=== PATIENT | female | born 1985 | race Caucasian/White ===

== ENCOUNTER 2019-06-29 19:34 | Emergency (ER) | payer MEDICAID ==
[~2019-06-29] VITALS: Ht 165.1 cm; Wt 104.1 kg
[2019-06-29] MEDS ORDERED: predniSONE 20 mg tablet PO ONE (20:55)
[2019-06-29] MEDS ORDERED: ipratropium/albuterol 3ml nebule NEB ONE (20:55)
[2019-06-29] MEDS ORDERED: PRED20TA PO (21:23)
[2019-06-29] MEDS ORDERED: ALBU8.5H8 IH (21:24)
[2019-06-29 21:34] VITALS: BP 138/85
== END 2019-06-29 21:39 | disposition home or self-care (01) ==
LOC: ER 19:35
DX: J45.901 Unspecified asthma with (acute) exacerbation (principal); J06.9 Acute upper respiratory infection, unspecified; F17.200 Nicotine dependence, unspecified, uncomplicated; Z98.51 Tubal ligation status; Z88.0 Allergy status to penicillin; Z79.899 Other long term (current) drug therapy
CPT/HCPCS: 71045; 94640; 94760; 99283; J7512

== ENCOUNTER 2019-08-16 09:34 | Emergency (ER) | payer MEDICAID ==
[~2019-08-16] VITALS: Ht 165.1 cm; Wt 100.6 kg
[~2019-08-16 09:34] MED LIST: ALBU8.5H8 IH
[2019-08-16 09:46] VITALS: BP 108/70
== END 2019-08-16 12:37 | disposition home or self-care (01) ==
LOC: ER 09:34
DX: M94.0 Chondrocostal junction syndrome [Tietze] (principal); J45.909 Unspecified asthma, uncomplicated; F17.210 Nicotine dependence, cigarettes, uncomplicated; Z98.51 Tubal ligation status; Z88.0 Allergy status to penicillin; Z79.899 Other long term (current) drug therapy
CPT/HCPCS: 99281

== ENCOUNTER 2020-09-13 23:37 | Emergency (ER) | payer MEDICAID ==
[~2020-09-13] VITALS: Ht 167.6 cm; Wt 101.8 kg
[2020-09-14] MEDS ORDERED: ipratropium/albuterol 3ml nebule NEB ONE (00:05)
[2020-09-14] MEDS ORDERED: prednisone 10mg tablet PO SCH (00:05)
[2020-09-14] MEDS ORDERED: predniSONE 20 mg tablet PO ONE (00:07)
[2020-09-14] MEDS ORDERED: PRED20TA PO (01:06)
[2020-09-14 01:15] VITALS: BP 121/72
== END 2020-09-14 01:21 | disposition home or self-care (01) ==
LOC: ER 23:38
DX: J45.998 Other asthma (principal); R06.02 Shortness of breath; R05 Cough; Z98.51 Tubal ligation status; Z88.0 Allergy status to penicillin; Z79.899 Other long term (current) drug therapy
CPT/HCPCS: 94640; 94760; 99283; J7512

== ENCOUNTER 2020-11-26 19:20 | Emergency (ER) | payer MEDICAID ==
[~2020-11-26] VITALS: Ht 167.6 cm; Wt 152.3 kg
[2020-11-26 19:26] VITALS: BP 121/84
[2020-11-26] MEDS ORDERED: TETanus/Pertussis (Acell)/Diphther VAC/PF (Tdap-Adult) 0.5ml syringe IMVAC ONE (20:40)
[2020-11-26] MEDS ORDERED: LIDOcaine 1% 30ml preserv. free vial IJ ONE (20:40)
[2020-11-26] MEDS ORDERED: bacitracin 15gm ointment TP ONE (20:40)
== END 2020-11-26 21:33 | disposition home or self-care (01) ==
LOC: ER 19:20
DX: S61.210A Laceration without foreign body of right index finger without damage to nail, initial encounter (principal); J45.909 Unspecified asthma, uncomplicated; Z98.51 Tubal ligation status; Z88.0 Allergy status to penicillin; Z79.899 Other long term (current) drug therapy; W22.8XXA Striking against or struck by other objects, initial encounter; Y93.G3 Activity, cooking and baking; Y92.89 Other specified places as the place of occurrence of the external cause; Y99.8 Other external cause status
CPT/HCPCS: 12001; 90471; 90715; 99283

== ENCOUNTER 2021-01-29 09:01 | Outpatient (CLI) | payer MEDICAID ==
[~2021-01-29] VITALS: Ht 166.4 cm; Wt 154.2 kg
[2021-01-29] MEDS ORDERED: albuterol 2.5 MG/3 ML nebule NEB ONE (10:00)
== END 2021-01-29 23:59 | disposition home or self-care (01) ==
LOC: RT 09:01
PROVIDERS: ATTEND Family Medicine
DX: J44.9 Chronic obstructive pulmonary disease, unspecified (principal)
CPT/HCPCS: 94060; 94760

== ENCOUNTER 2021-12-30 19:02 | Emergency (ER) | payer MEDICAID ==
[~2021-12-30] VITALS: Ht 167.6 cm; Wt 114.5 kg
[~2021-12-30 19:02] MED LIST changes: +ALBU8.5H17 IH; -ALBU8.5H8 IH
[2021-12-30] MEDS ORDERED: aspirin 81mg tab.chew PO ONE (19:35)
[2021-12-30 20:01] LABS: BASOPHILS # (AUTO) 0.1 X10'3 (0-0.2); EOSINOPHILS # (AUTO) 0.3 X10'3 (0-0.9); EOSINOPHILS % (AUTO) 2.8 % (0-6); HEMATOCRIT 36.4 % (35.0-45.0); HEMOGLOBIN 12.1 g/dl (12.0-16.0); LYMPHOCYTES # (AUTO) 2.5 X10'3 (1.1-4.8); LYMPHOCYTES % (AUTO) 28.9 % (21-51); MEAN CORPUSCULAR HEMOGLOBIN 29.6 PG (27.0-31.0); MEAN CORPUSCULAR HGB CONC 33.3 g/dL (33.0-36.5); MEAN CORPUSCULAR VOLUME 88.9 FL (78-98); MEAN PLATELET VOLUME 9.7 FL (7.4-10.4); MONOCYTES # (AUTO) 0.5 X10'3 (0-0.9); MONOCYTES % (AUTO) 6.1 % (2-12); NEUTROPHILS # (AUTO) 5.4 X10'3 (1.8-7.7); NEUTROPHILS % (AUTO) 61.2 % (42-75); PLATELET COUNT 325 X10'3 (140-440); RED BLOOD COUNT 4.09 X10'6 (4.20-5.60); RED CELL DISTRIBUTION WIDTH 14.7 % (11.5-14.5); WHITE BLOOD COUNT 8.8 X10'3 (4.5-11.0)
[2021-12-30 20:25] LABS: ALANINE AMINOTRANSFERASE 28 U/L (12-78); ALBUMIN 3.6 G/DL (3.4-5.0); ALBUMIN/GLOBULIN RATIO 0.9 (1.1-1.5); ANION GAP 9 (8-16); ASPARTATE AMINO TRANSFERASE 17 U/L (10-37); BILIRUBIN,TOTAL 0.2 MG/DL (0.1-1.0); BLOOD UREA NITROGEN 13 MG/DL (7-18); BUN/CREATININE RATIO 14.6 (6.6-38.0); CALCIUM 9.3 MG/DL (8.5-10.1); CHLORIDE 99 MMOL/L (99-107); CREATININE 0.89 MG/DL (0.40-0.90); GLUCOSE 112 MG/DL (70-104); MAGNESIUM 1.6 MG/DL (1.5-2.4); POTASSIUM 3.7 MMOL/L (3.5-5.1); SODIUM 136 MMOL/L (135-145); TOTAL CARBON DIOXIDE 28.3 MMOL/L (24-32); TOTAL PROTEIN 7.5 G/DL (6.4-8.2); eGFR 72 ML/MIN
[2021-12-30 21:46] VITALS: BP 105/63
== END 2021-12-30 22:13 | disposition left against medical advice (07) ==
LOC: ER 19:02
DX: R07.89 Other chest pain (principal); Z53.21 Procedure and treatment not carried out due to patient leaving prior to being seen by health care provider
CPT/HCPCS: 36415; 71045; 80053; 83735; 83880; 84484; 85025; 93005; 99285

== ENCOUNTER 2022-01-25 06:10 | Emergency (ER) | payer MEDICAID ==
[~2022-01-25] VITALS: Ht 167.6 cm; Wt 115.9 kg
[2022-01-25] MEDS ORDERED: ondansetron/PF 4mg/2ml inj IV ONE (06:35)
[2022-01-25] MEDS ORDERED: normal saline 1000ml 1,000 ML IV ONE (06:35)
[2022-01-25] MEDS ORDERED: acetaminophen 325mg tablet PO ONE (06:35)
[2022-01-25] MEDS ORDERED: ketorolac trometh. 30mg/ml inj. IV ONE (06:35)
[2022-01-25 07:31] LABS: BASOPHILS % (AUTO) 0.5 % (0-1); EOSINOPHILS # (AUTO) 0.2 X10'3 (0-0.9); EOSINOPHILS % (AUTO) 2.9 % (0-6); HEMATOCRIT 34.5 % (35.0-45.0); HEMOGLOBIN 11.8 g/dl (12.0-16.0); LYMPHOCYTES # (AUTO) 0.7 X10'3 (1.1-4.8); LYMPHOCYTES % (AUTO) 11.2 % (21-51); MEAN CORPUSCULAR HEMOGLOBIN 29.9 PG (27.0-31.0); MEAN CORPUSCULAR VOLUME 87.8 FL (78-98); MEAN PLATELET VOLUME 9.7 FL (7.4-10.4); MONOCYTES # (AUTO) 0.3 X10'3 (0-0.9); MONOCYTES % (AUTO) 5.2 % (2-12); NEUTROPHILS # (AUTO) 4.9 X10'3 (1.8-7.7); NEUTROPHILS % (AUTO) 80.2 % (42-75); PLATELET COUNT 267 X10'3 (140-440); RED BLOOD COUNT 3.93 X10'6 (4.20-5.60); RED CELL DISTRIBUTION WIDTH 14.2 % (11.5-14.5); WHITE BLOOD COUNT 6.1 X10'3 (4.5-11.0)
[2022-01-25] MEDS ORDERED: LORA10TA7 PO (07:34)
[2022-01-25] MEDS ORDERED: OMEP40CA21 PO (07:34)
[2022-01-25] MEDS ORDERED: AMIT25TA9 PO (07:34)
[2022-01-25] MEDS ORDERED: ESCI20TA25 PO (07:34)
[2022-01-25] MEDS ORDERED: MONT10TA21 PO (07:34)
[2022-01-25 07:37] LABS: URINE HCG NEGATIVE (NEG)
[2022-01-25 07:39] LABS: CLARITY,URINE CLOUDY (Clear); COLOR,URINE YELLOW (Yellow); GLUCOSE, URINE NEGATIVE (Neg); KETONES,URINE NEGATIVE (Neg); LEUKOCYTE ESTERASE ,URINE TRACE (Neg); NITRITES, URINE NEGATIVE (Neg); OCCULT BLOOD,URINE NEGATIVE (Neg); PH,URINE 7.5 (4.8-8.0); PROTEIN,URINE TRACE mg/dl (Neg)
[2022-01-25 07:48] LABS: MUCUS STRANDS FEW /LPF (Neg); SQUAMOUS EPITHELIAL CELL,UR MANY /LPF (FEW); UA COLLECTION TYPE NON-SPECIFIED
[2022-01-25 07:49] LABS: BACTERIA,URINE 1+ /HPF (Neg); RBC,URINE 0-2 /HPF (0-2); WBC,URINE 0-4 /HPF (0-4)
[2022-01-25 07:50] LABS: ALANINE AMINOTRANSFERASE 25 U/L (12-78); ALBUMIN 3.3 G/DL (3.4-5.0); ALBUMIN/GLOBULIN RATIO 0.9 (1.1-1.5); ALKALINE PHOSPHATASE 60 IU/L (46-116); ANION GAP 12 (8-16); ASPARTATE AMINO TRANSFERASE 16 U/L (10-37); BILIRUBIN,TOTAL 0.3 MG/DL (0.1-1.0); BLOOD UREA NITROGEN 8 MG/DL (7-18); CALCIUM 8.2 MG/DL (8.5-10.1); CHLORIDE 102 MMOL/L (99-107); CREATININE 0.73 MG/DL (0.40-0.90); GLUCOSE 99 MG/DL (70-104); LIPASE < 50 U/L (73-393); POTASSIUM 3.8 MMOL/L (3.5-5.1); SODIUM 138 MMOL/L (135-145); TOTAL PROTEIN 7.1 G/DL (6.4-8.2); eGFR 90 ML/MIN
[2022-01-25] MEDS ORDERED: ONDA8TAB13 PO (10:15)
[2022-01-25 10:54] VITALS: BP 110/84
== END 2022-01-25 10:55 | disposition home or self-care (01) ==
LOC: ER 06:10
DX: B34.9 Viral infection, unspecified (principal); Z20.822 Contact with and (suspected) exposure to COVID-19; M54.9 Dorsalgia, unspecified; R11.2 Nausea with vomiting, unspecified; J45.909 Unspecified asthma, uncomplicated; Z98.51 Tubal ligation status; Z88.0 Allergy status to penicillin; Z79.899 Other long term (current) drug therapy
CPT/HCPCS: 36415; 80053; 81001; 81025; 83690; 84145; 85025; 87635; 96361; 96374; 96375; 99285; C9803; J1885; J2405; J7030

== ENCOUNTER 2022-04-05 16:51 | Emergency (ER) | payer MEDICAID ==
[~2022-04-05] VITALS: Ht 167.6 cm; Wt 114.5 kg
[~2022-04-05 16:51] MED LIST changes: +AMIT25TA9 PO; +ESCI20TA25 PO; +LORA10TA7 PO; +MONT10TA21 PO; +OMEP40CA21 PO; +ONDA8TAB13 PO
[2022-04-05] MEDS ORDERED: AZIT-31 PO (20:20)
[2022-04-05] MEDS ORDERED: azithromycin 250mg tablet PO ONE (21:00)
[2022-04-05 21:16] VITALS: BP 120/76
== END 2022-04-05 21:23 | disposition home or self-care (01) ==
LOC: ER 16:55
DX: J18.9 Pneumonia, unspecified organism (principal); J45.909 Unspecified asthma, uncomplicated; Z20.822 Contact with and (suspected) exposure to COVID-19; F41.9 Anxiety disorder, unspecified; Z98.51 Tubal ligation status; Z88.0 Allergy status to penicillin; Z79.899 Other long term (current) drug therapy
CPT/HCPCS: 71045; 87502; 87503; 87635; 99284; C9803

== ENCOUNTER 2022-04-17 17:44 | Emergency (ER) | payer MEDICAID ==
[~2022-04-17] VITALS: Ht 167.6 cm; Wt 115.0 kg
[2022-04-17] MEDS ORDERED: ketorolac trometh. 30mg/ml inj. IV ONE (18:55)
[2022-04-17 19:12] LABS: URINE HCG NEGATIVE (NEG)
[2022-04-17 19:14] LABS: CLARITY,URINE SLIGHTLY CLOUDY (Clear); COLOR,URINE YELLOW (Yellow); GLUCOSE, URINE NEGATIVE (Neg); KETONES,URINE NEGATIVE (Neg); LEUKOCYTE ESTERASE ,URINE TRACE (Neg); NITRITES, URINE NEGATIVE (Neg); OCCULT BLOOD,URINE LARGE (Neg); PROTEIN,URINE TRACE mg/dl (Neg); UROBILINOGEN,URINE 0.2 E.U/dL (0.2-1.0)
[2022-04-17 19:20] LABS: UA COLLECTION TYPE CLN CATCH MIDSTREAM
[2022-04-17 19:25] LABS: BACTERIA,URINE FEW /HPF (Neg); MUCUS STRANDS MANY /LPF (Neg); SQUAMOUS EPITHELIAL CELL,UR MANY /LPF (FEW); WBC,URINE 0-4 /HPF (0-4)
== END 2022-04-17 20:07 | disposition home or self-care (01) ==
LOC: ER 19:22
DX: R10.2 Pelvic and perineal pain (principal); R10.84 Generalized abdominal pain; J45.909 Unspecified asthma, uncomplicated; F41.9 Anxiety disorder, unspecified; Z88.0 Allergy status to penicillin; Z79.899 Other long term (current) drug therapy
CPT/HCPCS: 81001; 81025; 96374; 99283; J1885

== ENCOUNTER 2022-07-27 11:55 | Emergency (ER) | payer MEDICAID ==
[~2022-07-27] VITALS: Ht 167.6 cm; Wt 114.9 kg
[~2022-07-27 11:55] MED LIST changes: -ESCI20TA25 PO; +ESCI20TA36 PO
[2022-07-27 12:24] VITALS: BP 120/70
[2022-07-27] MEDS ORDERED: ketorolac trometh inj. 60 MG/2 ML VIAL IM ONE (12:50)
[2022-07-27] MEDS ORDERED: ORPH100T2 PO (13:18)
== END 2022-07-27 13:32 | disposition home or self-care (01) ==
LOC: ER 11:56
DX: S39.012A Strain of muscle, fascia and tendon of lower back, initial encounter (principal); F41.9 Anxiety disorder, unspecified; G89.29 Other chronic pain; M54.9 Dorsalgia, unspecified; J45.909 Unspecified asthma, uncomplicated; Z87.81 Personal history of (healed) traumatic fracture; Z88.0 Allergy status to penicillin; Z79.899 Other long term (current) drug therapy; X58.XXXA Exposure to other specified factors, initial encounter; Y93.89 Activity, other specified; Y92.89 Other specified places as the place of occurrence of the external cause; Y99.8 Other external cause status
CPT/HCPCS: 96372; 99283; J1885

== ENCOUNTER 2022-09-03 15:01 | Emergency (ER) | payer MEDICAID ==
[~2022-09-03] VITALS: Ht 167.6 cm; Wt 111.4 kg
[~2022-09-03 15:01] MED LIST changes: +ORPH100T2 PO
[2022-09-03 15:04] VITALS: BP 108/75
[2022-09-03] MEDS ORDERED: IBUP-1984 PO (17:07)
== END 2022-09-03 17:31 | disposition home or self-care (01) ==
LOC: ER 15:02
DX: M25.571 Pain in right ankle and joints of right foot (principal); J45.909 Unspecified asthma, uncomplicated; G89.29 Other chronic pain; F41.9 Anxiety disorder, unspecified; Z98.51 Tubal ligation status; Z88.0 Allergy status to penicillin; Z79.899 Other long term (current) drug therapy
CPT/HCPCS: 73610; 99283

== ENCOUNTER 2022-09-07 23:14 | Emergency (ER) | payer MEDICAID ==
[~2022-09-07] VITALS: Ht 167.6 cm; Wt 113.0 kg
[~2022-09-07 23:14] MED LIST changes: +IBUP-1984 PO
[2022-09-07 23:18] VITALS: BP 121/75
[2022-09-08 00:14] LABS: CLARITY,URINE CLOUDY (Clear); GLUCOSE, URINE NEGATIVE (Neg); KETONES,URINE 15 mg/dl (Neg); LEUKOCYTE ESTERASE ,URINE SMALL (Neg); NITRITES, URINE POSITIVE (Neg); OCCULT BLOOD,URINE LARGE (Neg); PH,URINE 5.5 (4.8-8.0); PROTEIN,URINE 100 mg/dl (Neg); URINE HCG NEGATIVE (NEG)
[2022-09-08 00:30] LABS: COLOR,URINE RED (Yellow); UA COLLECTION TYPE CLN CATCH MIDSTREAM
[2022-09-08 00:32] LABS: BACTERIA,URINE FEW /HPF (Neg); RBC,URINE TNTC /HPF (0-2); SQUAMOUS EPITHELIAL CELL,UR FEW /LPF (FEW)
[2022-09-08 00:33] LABS: MUCUS STRANDS FEW /LPF (Neg)
[2022-09-08 02:25] LABS: BASOPHILS # (AUTO) 0.1 X10'3 (0-0.2); BASOPHILS % (AUTO) 1.3 % (0-1); EOSINOPHILS # (AUTO) 0.2 X10'3 (0-0.9); EOSINOPHILS % (AUTO) 3.1 % (0-6); HEMATOCRIT 32.1 % (35.0-45.0); LYMPHOCYTES # (AUTO) 2.3 X10'3 (1.1-4.8); LYMPHOCYTES % (AUTO) 32.8 % (21-51); MEAN CORPUSCULAR HEMOGLOBIN 29.5 PG (27.0-31.0); MEAN CORPUSCULAR HGB CONC 34.3 g/dL (33.0-36.5); MEAN PLATELET VOLUME 9.8 FL (7.4-10.4); MONOCYTES # (AUTO) 0.4 X10'3 (0-0.9); NEUTROPHILS % (AUTO) 56.8 % (42-75); PLATELET COUNT 290 X10'3 (140-440); RED BLOOD COUNT 3.73 X10'6 (4.20-5.60); RED CELL DISTRIBUTION WIDTH 14.1 % (11.5-14.5)
[2022-09-08 02:39] LABS: ALANINE AMINOTRANSFERASE 23 U/L (12-78); ALBUMIN 3.5 G/DL (3.4-5.0); ALBUMIN/GLOBULIN RATIO 0.9 (1.1-1.5); ALKALINE PHOSPHATASE 66 IU/L (46-116); ANION GAP 7 (8-16); ASPARTATE AMINO TRANSFERASE 18 U/L (10-37); BILIRUBIN,TOTAL 0.2 MG/DL (0.1-1.0); BLOOD UREA NITROGEN 9 MG/DL (7-18); BUN/CREATININE RATIO 8.9 (6.6-38.0); CHLORIDE 103 MMOL/L (99-107); CREATININE 1.01 MG/DL (0.40-0.90); GLUCOSE 99 MG/DL (70-104); POTASSIUM 3.5 MMOL/L (3.5-5.1); SODIUM 137 MMOL/L (135-145); TOTAL CARBON DIOXIDE 27.5 MMOL/L (24-32); TOTAL PROTEIN 7.3 G/DL (6.4-8.2); eGFR 62 ML/MIN
[2022-09-08] MEDS ORDERED: acetaminophen 325mg tablet PO ONE (07:55)
[2022-09-08] MEDS ORDERED: ondansetron 4mg rapidly disintigrating tab PO ONE (07:55)
[2022-09-08] MEDS ORDERED: CIPR-202 PO (07:57)
[2022-09-08] MEDS ORDERED: ketorolac trometh inj. 60 MG/2 ML VIAL IM ONE (08:06)
[2022-09-08] MEDS ORDERED: ciprofloxacin 250mg tablet PO ONE (08:06)
== END 2022-09-08 08:49 | disposition home or self-care (01) ==
LOC: ER 23:15
DX: N39.0 Urinary tract infection, site not specified (principal); R31.9 Hematuria, unspecified; G89.29 Other chronic pain; M54.9 Dorsalgia, unspecified; F41.9 Anxiety disorder, unspecified; J45.909 Unspecified asthma, uncomplicated; Z88.0 Allergy status to penicillin; Z79.899 Other long term (current) drug therapy; Z79.1 Long term (current) use of non-steroidal anti-inflammatories (NSAID)
CPT/HCPCS: 36415; 80053; 81001; 81025; 85025; 87088; 96372; 99284; J1885

== ENCOUNTER 2022-10-18 09:29 | Emergency (ER) | payer MEDICAID ==
[~2022-10-18] VITALS: Ht 167.6 cm; Wt 116.0 kg
[~2022-10-18 09:29] MED LIST changes: -IBUP-1984 PO
[2022-10-18 10:38] LABS: URINE HCG NEGATIVE (NEG)
[2022-10-18 10:39] LABS: CLARITY,URINE CLOUDY (Clear); COLOR,URINE YELLOW (Yellow); GLUCOSE, URINE NEGATIVE (Neg); KETONES,URINE NEGATIVE (Neg); LEUKOCYTE ESTERASE ,URINE MODERATE (Neg); NITRITES, URINE NEGATIVE (Neg); OCCULT BLOOD,URINE MODERATE (Neg); PROTEIN,URINE NEGATIVE (Neg); UROBILINOGEN,URINE 0.2 E.U/dL (0.2-1.0)
[2022-10-18 10:46] LABS: UA COLLECTION TYPE CLN CATCH MIDSTREAM
[2022-10-18 10:58] LABS: BACTERIA,URINE 4+ /HPF (Neg); MUCUS STRANDS FEW /LPF (Neg); RBC,URINE 0-2 /HPF (0-2); SQUAMOUS EPITHELIAL CELL,UR MANY /LPF (FEW); WBC,URINE 50-100 /HPF (0-4)
[2022-10-18] MEDS ORDERED: HYDR-3965 PO (11:44)
[2022-10-18] MEDS ORDERED: HYDROcodone/acetaminophen 5mg/325mg tablet PO ONE (11:45)
[2022-10-18 11:52] VITALS: BP 141/88
== END 2022-10-18 12:12 | disposition home or self-care (01) ==
LOC: ER 09:29
DX: M54.9 Dorsalgia, unspecified (principal); G89.29 Other chronic pain; F41.9 Anxiety disorder, unspecified; J45.909 Unspecified asthma, uncomplicated; Z88.0 Allergy status to penicillin; Z79.899 Other long term (current) drug therapy
CPT/HCPCS: 81001; 81025; 99283

== ENCOUNTER 2022-12-03 19:29 | Emergency (ER) | payer MEDICAID ==
[~2022-12-03] VITALS: Ht 167.6 cm; Wt 116.3 kg
[2022-12-03 19:44] VITALS: BP 129/77
[2022-12-03] MEDS ORDERED: SULF1TAB49 PO (20:39)
[2022-12-03] MEDS ORDERED: LIDOcaine 1% 30ml preserv. free vial IJ ONE (20:45)
[2022-12-03] MEDS ORDERED: bacitracin 15gm ointment TP ONE (21:30)
[2022-12-03] MEDS ORDERED: sulfamethoxazole/trimethoprim DS (800/160mg) tablet PO ONE (21:30)
== END 2022-12-03 21:40 | disposition home or self-care (01) ==
LOC: ER 19:29
DX: L60.0 Ingrowing nail (principal); J45.909 Unspecified asthma, uncomplicated; G89.29 Other chronic pain; F41.9 Anxiety disorder, unspecified; Z98.51 Tubal ligation status; Z88.0 Allergy status to penicillin; Z79.899 Other long term (current) drug therapy
CPT/HCPCS: 10060; 99283

== ENCOUNTER 2022-12-28 07:06 | Emergency (ER) | payer MEDICAID ==
[~2022-12-28] VITALS: Ht 167.6 cm; Wt 115.0 kg
[2022-12-28 07:09] VITALS: BP 104/58
[2022-12-28 08:06] LABS: BASOPHILS % (AUTO) 0.6 % (0-1); EOSINOPHILS # (AUTO) 0.2 X10'3 (0-0.9); EOSINOPHILS % (AUTO) 2.9 % (0-6); HEMATOCRIT 33.4 % (35.0-45.0); HEMOGLOBIN 11.2 g/dl (12.0-16.0); MEAN CORPUSCULAR HEMOGLOBIN 28.7 PG (27.0-31.0); MEAN CORPUSCULAR HGB CONC 33.7 g/dL (33.0-36.5); MEAN CORPUSCULAR VOLUME 85.2 FL (78-98); MEAN PLATELET VOLUME 9.1 FL (7.4-10.4); MONOCYTES # (AUTO) 0.5 X10'3 (0-0.9); MONOCYTES % (AUTO) 5.5 % (2-12); NEUTROPHILS # (AUTO) 5.5 X10'3 (1.8-7.7); PLATELET COUNT 286 X10'3 (140-440); RED BLOOD COUNT 3.92 X10'6 (4.20-5.60); RED CELL DISTRIBUTION WIDTH 14.6 % (11.5-14.5); WHITE BLOOD COUNT 8.2 X10'3 (4.5-11.0)
[2022-12-28 08:19] LABS: ALANINE AMINOTRANSFERASE 26 U/L (12-78); ALBUMIN 3.5 G/DL (3.4-5.0); ALBUMIN/GLOBULIN RATIO 0.9 (1.1-1.5); ALKALINE PHOSPHATASE 68 IU/L (46-116); ANION GAP 6 (8-16); ASPARTATE AMINO TRANSFERASE 21 U/L (10-37); BILIRUBIN,TOTAL 0.2 MG/DL (0.1-1.0); BLOOD UREA NITROGEN 11 MG/DL (7-18); BUN/CREATININE RATIO 12.8 (6.6-38.0); CALCIUM 8.9 MG/DL (8.5-10.1); CHLORIDE 102 MMOL/L (99-107); CREATININE 0.86 MG/DL (0.40-0.90); GLUCOSE 103 MG/DL (70-104); LIPASE < 50 U/L (73-393); SODIUM 138 MMOL/L (135-145); TOTAL CARBON DIOXIDE 30.2 MMOL/L (24-32); TOTAL PROTEIN 7.4 G/DL (6.4-8.2); eGFR 74 ML/MIN
[2022-12-28 08:41] LABS: CLARITY,URINE CLOUDY (Clear); COLOR,URINE YELLOW (Yellow); GLUCOSE, URINE NEGATIVE (Neg); KETONES,URINE NEGATIVE (Neg); LEUKOCYTE ESTERASE ,URINE MODERATE (Neg); NITRITES, URINE NEGATIVE (Neg); OCCULT BLOOD,URINE MODERATE (Neg); PH,URINE 6.5 (4.8-8.0); PROTEIN,URINE 30 mg/dl (Neg); UROBILINOGEN,URINE 0.2 E.U/dL (0.2-1.0)
[2022-12-28 08:43] LABS: URINE HCG NEGATIVE (NEG)
[2022-12-28 08:50] LABS: UA COLLECTION TYPE CLN CATCH MIDSTREAM
[2022-12-28 08:51] LABS: WBC,URINE 50-100 /HPF (0-4)
[2022-12-28 08:52] LABS: BACTERIA,URINE 4+ /HPF (Neg); SQUAMOUS EPITHELIAL CELL,UR MODERATE /LPF (FEW); WBC CLUMPS,URINE MODERATE /HPF (NEGATIVE)
[2022-12-28] MEDS ORDERED: ondansetron/PF 4mg/2ml inj IV ONE (09:05)
[2022-12-28] MEDS ORDERED: normal saline 1000ML IV soln IVB ONE (09:05)
[2022-12-28] MEDS ORDERED: ketorolac trometh. 30mg/ml inj. IV ONE (09:05)
[2022-12-28] MEDS ORDERED: HYDROcodone/acetaminophen 5mg/325mg tablet PO ONE (09:05)
--- NOTE | 2022-12-28 09:27 | NUR ---
high raw sugar boiler aware of IV meds for patient.
[2022-12-28] MEDS ORDERED: CefTRIAXone 2gm/D5W 50ml BAG 50 ML IV ONE (10:15)
--- NOTE | 2022-12-28 10:34 | NUR ---
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
--- NOTE | 2022-12-28 10:38 | NUR ---
master control technician at bedside.
[2022-12-28] MEDS ORDERED: CEPH250T PO (10:57)
[2022-12-28] MEDS ORDERED: FLO0.4C PO (10:57)
[2022-12-28] MEDS ORDERED: NAPR-56 PO (10:57)
[2022-12-28] MEDS ORDERED: HYDR-3965 PO (10:57)
--- NOTE | 2022-12-28 11:15 | NUR ---
IV removed, cannual intact.
== END 2022-12-28 11:18 | disposition home or self-care (01) ==
LOC: ER 07:06
DX: N12 Tubulo-interstitial nephritis, not specified as acute or chronic (principal); M54.50 Low back pain, unspecified; F41.9 Anxiety disorder, unspecified; Z88.0 Allergy status to penicillin; Z79.899 Other long term (current) drug therapy; Z98.51 Tubal ligation status
CPT/HCPCS: 36415; 76770; 80053; 81001; 81025; 83690; 85025; 87088; 87186; 96365; 96375; 99285; J0696; J1885; J2405; J7030; 87077

== ENCOUNTER 2023-01-06 17:49 | Emergency (ER) | payer MEDICAID ==
[~2023-01-06] VITALS: Ht 167.6 cm; Wt 118.0 kg
[~2023-01-06 17:49] MED LIST changes: +CEPH250T PO; +FLO0.4C PO; +HYDR-3965 PO; +NAPR-56 PO
[2023-01-06 19:09] LABS: CLARITY,URINE SLIGHTLY CLOUDY (Clear); COLOR,URINE YELLOW (Yellow); GLUCOSE, URINE NEGATIVE (Neg); KETONES,URINE NEGATIVE (Neg); LEUKOCYTE ESTERASE ,URINE TRACE (Neg); NITRITES, URINE NEGATIVE (Neg); OCCULT BLOOD,URINE NEGATIVE (Neg); PROTEIN,URINE NEGATIVE (Neg); URINE HCG NEGATIVE (NEG); UROBILINOGEN,URINE 0.2 E.U/dL (0.2-1.0)
[2023-01-06 19:14] LABS: UA COLLECTION TYPE CLN CATCH MIDSTREAM
[2023-01-06 19:19] LABS: BACTERIA,URINE FEW /HPF (Neg); MUCUS STRANDS FEW /LPF (Neg); SQUAMOUS EPITHELIAL CELL,UR MODERATE /LPF (FEW)
[2023-01-06 19:48] VITALS: BP 122/78
[2023-01-06] MEDS ORDERED: normal saline 1000ML IV soln IVB ONE (20:25)
[2023-01-06 20:29] LABS: BASOPHILS # (AUTO) 0.1 X10'3 (0-0.2); BASOPHILS % (AUTO) 0.7 % (0-1); EOSINOPHILS # (AUTO) 0.2 X10'3 (0-0.9); EOSINOPHILS % (AUTO) 2.2 % (0-6); HEMATOCRIT 32.2 % (35.0-45.0); HEMOGLOBIN 10.4 g/dl (12.0-16.0); LYMPHOCYTES % (AUTO) 25.9 % (21-51); MEAN CORPUSCULAR HEMOGLOBIN 27.6 PG (27.0-31.0); MEAN CORPUSCULAR HGB CONC 32.4 g/dL (33.0-36.5); MEAN CORPUSCULAR VOLUME 85.2 FL (78-98); MEAN PLATELET VOLUME 9.3 FL (7.4-10.4); MONOCYTES # (AUTO) 0.5 X10'3 (0-0.9); MONOCYTES % (AUTO) 6.5 % (2-12); NEUTROPHILS # (AUTO) 4.9 X10'3 (1.8-7.7); NEUTROPHILS % (AUTO) 64.7 % (42-75); PLATELET COUNT 328 X10'3 (140-440); RED BLOOD COUNT 3.78 X10'6 (4.20-5.60); RED CELL DISTRIBUTION WIDTH 14.5 % (11.5-14.5); WHITE BLOOD COUNT 7.6 X10'3 (4.5-11.0)
[2023-01-06 20:43] LABS: ALANINE AMINOTRANSFERASE 23 U/L (12-78); ALBUMIN 3.6 G/DL (3.4-5.0); ALBUMIN/GLOBULIN RATIO 0.9 (1.1-1.5); ALKALINE PHOSPHATASE 61 IU/L (46-116); ANION GAP 7 (8-16); ASPARTATE AMINO TRANSFERASE 14 U/L (10-37); BILIRUBIN,TOTAL 0.3 MG/DL (0.1-1.0); BLOOD UREA NITROGEN 7 MG/DL (7-18); CALCIUM 9.2 MG/DL (8.5-10.1); CHLORIDE 103 MMOL/L (99-107); CREATININE 0.78 MG/DL (0.40-0.90); GLUCOSE 95 MG/DL (70-104); POTASSIUM 3.7 MMOL/L (3.5-5.1); SODIUM 138 MMOL/L (135-145); TOTAL CARBON DIOXIDE 27.9 MMOL/L (24-32); TOTAL PROTEIN 7.4 G/DL (6.4-8.2); eGFR 83 ML/MIN
[2023-01-06] MEDS ORDERED: HYDROcodone/acetaminophen 5mg/325mg tablet PO ONE (21:30)
[2023-01-06] MEDS ORDERED: CefTRIAXone 2gm/D5W 50ml BAG 50 ML IV ONE (21:30)
[2023-01-06] MEDS ORDERED: HYDR-3965 PO (21:30)
[2023-01-06] MEDS ORDERED: CEPH250T PO (21:30)
[2023-01-06] MEDS ORDERED: ketorolac trometh. 30mg/ml inj. IV ONE (21:30)
== END 2023-01-06 22:33 | disposition home or self-care (01) ==
LOC: ER 17:50
DX: N12 Tubulo-interstitial nephritis, not specified as acute or chronic (principal); N20.0 Calculus of kidney; J45.909 Unspecified asthma, uncomplicated; G89.29 Other chronic pain; M54.50 Low back pain, unspecified; Z88.0 Allergy status to penicillin; Z98.51 Tubal ligation status
CPT/HCPCS: 36415; 74176; 76856; 80053; 81001; 81025; 85025; 85610; 86885; 86900; 86901; 87088; 93976; 96361; 96365; 96375; 99285; J0696; J1885; J7030

== ENCOUNTER 2023-03-12 05:46 | Emergency (ER) | payer MEDICAID ==
[~2023-03-12] VITALS: Ht 167.6 cm; Wt 110.9 kg
[~2023-03-12 05:46] MED LIST changes: -CEPH250T PO; -FLO0.4C PO; -HYDR-3965 PO; +MONT-47 PO; -MONT10TA21 PO; -NAPR-56 PO; -ORPH100T2 PO; +ORPH100T4 PO
[2023-03-12 05:53] VITALS: BP 118/60
== END 2023-03-12 08:53 | disposition home or self-care (01) ==
LOC: ER 05:46
DX: M79.674 Pain in right toe(s) (principal); G89.29 Other chronic pain; J45.909 Unspecified asthma, uncomplicated; F41.9 Anxiety disorder, unspecified; Z98.51 Tubal ligation status; Z88.0 Allergy status to penicillin; Z79.899 Other long term (current) drug therapy
CPT/HCPCS: 99281

== ENCOUNTER 2024-04-10 11:37 | Emergency (ER) | payer MEDICAID ==
[~2024-04-10] VITALS: Ht 165.1 cm; Wt 94.1 kg
[2024-04-10 11:51] VITALS: BP 110/67; TEMP 98
[2024-04-10] MEDS: ipratropium/albuterol 3ml nebule NEB ONE (14:44)
[2024-04-10 14:45] VITALS: PULSE 76; RESP 18; O2SAT 99
[2024-04-10 14:51] VITALS: PULSE 78; RESP 18; O2SAT 100
[2024-04-10] MEDS ORDERED: ALBU8HFA PO (14:54)
[2024-04-10] MEDS ORDERED: PRED20TA PO (14:54)
[2024-04-10] MEDS: predniSONE 20 mg tablet PO ONE (14:58)
[2024-04-10 15:39] VITALS: PULSE 90; RESP 16; O2SAT 99
== END 2024-04-10 15:41 | disposition home or self-care (01) ==
LOC: ER 11:37
DX: J45.901 Unspecified asthma with (acute) exacerbation (principal); Z88.0 Allergy status to penicillin; Z79.899 Other long term (current) drug therapy; Z98.51 Tubal ligation status
CPT/HCPCS: 71045; 94640; 99283; J7512; 94760

== ENCOUNTER 2024-07-05 22:07 | Emergency (ER) | payer MEDICAID ==
[~2024-07-05] VITALS: Ht 165.1 cm; Wt 95.4 kg
[~2024-07-05 22:07] MED LIST changes: +ONDA-245 PO; -ONDA8TAB13 PO
[2024-07-05 22:15] VITALS: BP 104/71; PULSE 89; RESP 16; TEMP 97.8; O2SAT 100
[2024-07-05] MEDS ORDERED: AMOX-580 PO (22:18)
[2024-07-05] MEDS ORDERED: VALA100031 PO (22:18)
== END 2024-07-05 23:03 | disposition home or self-care (01) ==
LOC: ER 22:07
DX: S51.832A Puncture wound without foreign body of left forearm, initial encounter (principal); J45.909 Unspecified asthma, uncomplicated; G89.29 Other chronic pain; M54.9 Dorsalgia, unspecified; Z88.0 Allergy status to penicillin; Z79.899 Other long term (current) drug therapy; Z98.51 Tubal ligation status; W55.01XA Bitten by cat, initial encounter; Y93.89 Activity, other specified; Y92.89 Other specified places as the place of occurrence of the external cause; Y99.8 Other external cause status
CPT/HCPCS: 99283

== ENCOUNTER 2024-11-04 12:45 | Emergency (ER) | payer MEDICAID ==
[~2024-11-04] VITALS: Ht 165.1 cm; Wt 87.0 kg
[~2024-11-04 12:45] MED LIST changes: +VALA100031 PO
[2024-11-04 13:04] VITALS: TEMP 96.9
[2024-11-04 15:52] VITALS: BP 106/68; PULSE 77; RESP 15; O2SAT 98
[2024-11-04] MEDS ORDERED: PRED50TA PO (16:19)
[2024-11-04] MEDS: predniSONE 20 mg tablet PO ONE (16:25)
== END 2024-11-04 16:30 | disposition home or self-care (01) ==
LOC: ER 12:46
DX: R06.02 Shortness of breath (principal); J45.909 Unspecified asthma, uncomplicated; F41.9 Anxiety disorder, unspecified; Z88.0 Allergy status to penicillin; Z87.442 Personal history of urinary calculi; Z98.51 Tubal ligation status
CPT/HCPCS: 99283; J7512

== ENCOUNTER 2024-11-09 15:11 | Emergency (ER) | payer MEDICAID ==
[~2024-11-09] VITALS: Ht 167.6 cm; Wt 90.0 kg
[~2024-11-09 15:11] MED LIST changes: +PRED50TA PO
[2024-11-09 15:49] LABS: BASOPHILS % (AUTO) 0.1 % (0-1); EOSINOPHILS % (AUTO) 0 % (0-6); HEMATOCRIT 40.7 % (35.0-45.0); HEMOGLOBIN 13.9 g/dl (12.0-16.0); LYMPHOCYTES # (AUTO) 0.6 X10'3 (1.1-4.8); LYMPHOCYTES % (AUTO) 5.8 % (21-51); MEAN CORPUSCULAR HGB CONC 34.2 g/dL (33.0-36.5); MEAN CORPUSCULAR VOLUME 93.8 FL (78-98); MEAN PLATELET VOLUME 9.4 FL (7.4-10.4); MONOCYTES # (AUTO) 0.7 X10'3 (0-0.9); MONOCYTES % (AUTO) 5.8 % (2-12); NEUTROPHILS # (AUTO) 9.9 X10'3 (1.8-7.7); NEUTROPHILS % (AUTO) 88.3 % (42-75); PLATELET COUNT 293 X10'3 (140-440); RED BLOOD COUNT 4.34 X10'6 (4.20-5.60); RED CELL DISTRIBUTION WIDTH 14.7 % (11.5-14.5); WHITE BLOOD COUNT 11.3 X10'3 (4.5-11.0)
[2024-11-09 15:59] LABS: ALANINE AMINOTRANSFERASE 22 U/L (12-78); ALBUMIN 3.6 G/DL (3.4-5.0); ALBUMIN/GLOBULIN RATIO 0.9 (1.1-1.5); ALKALINE PHOSPHATASE 58 IU/L (46-116); ANION GAP 9 (8-16); ASPARTATE AMINO TRANSFERASE 16 U/L (10-37); BILIRUBIN,TOTAL 0.4 MG/DL (0.1-1.0); BLOOD UREA NITROGEN 9 MG/DL (7-18); BUN/CREATININE RATIO 9.4 (10.0-20.0); CHLORIDE 101 MMOL/L (99-107); CREATININE 0.96 MG/DL (0.40-0.90); GLUCOSE 104 MG/DL (70-104); POTASSIUM 3.7 MMOL/L (3.5-5.1); SODIUM 137 MMOL/L (135-145); TOTAL CARBON DIOXIDE 27.4 MMOL/L (24-32); TOTAL PROTEIN 7.6 G/DL (6.4-8.2); eCRCL 74 ML/MIN; eGFR 65 ML/MIN
[2024-11-09 16:07] LABS: PRO BRAIN NATRIURETIC PEPTIDE 47 PG/ML (0-125)
[2024-11-09] MEDS: ipratropium/albuterol 3ml nebule NEB ONE (16:11)
[2024-11-09 16:14] VITALS: PULSE 111; PULSE 113; RESP 18; O2SAT 100; O2SAT 98
[2024-11-09] MEDS ORDERED: PRED20TA PO (17:35)
[2024-11-09] MEDS ORDERED: NEBU-184 (17:35)
[2024-11-09] MEDS ORDERED: ALB0.5UD NEB (17:35)
[2024-11-09] MEDS ORDERED: GUAI120015 PO (17:36)
[2024-11-09] MEDS: albuterol 2.5 MG/3 ML nebule NEB ONE (17:41)
[2024-11-09 17:44] VITALS: PULSE 106; PULSE 112; RESP 18; RESP 19; O2SAT 100
[2024-11-09 18:02] VITALS: BP 136/83; PULSE 106; RESP 15; TEMP 98.3; O2SAT 100
[2024-11-09] MEDS: albuterol 2.5 MG/3 ML nebule ONE (18:02)
== END 2024-11-09 18:04 | disposition home or self-care (01) ==
LOC: ER 15:12
DX: J45.909 Unspecified asthma, uncomplicated (principal); J10.1 Influenza due to other identified influenza virus with other respiratory manifestations; F41.9 Anxiety disorder, unspecified; G89.29 Other chronic pain; Z88.0 Allergy status to penicillin; Z87.442 Personal history of urinary calculi; Z98.51 Tubal ligation status; Z20.822 Contact with and (suspected) exposure to COVID-19
CPT/HCPCS: 36415; 71045; 80053; 83880; 84484; 85025; 87502; 87503; 87811; 93005; 94640; 94760; 99285

== ENCOUNTER 2024-11-13 21:52 | Emergency (ER) | payer MEDICAID ==
[~2024-11-13] VITALS: Ht 167.6 cm; Wt 90.0 kg
[~2024-11-13 21:52] MED LIST changes: +ALB0.5UD NEB; +GUAI120015 PO; +NEBU-184
[2024-11-13 22:24] LABS: BASOPHILS # (AUTO) 0.1 X10'3 (0-0.2); BASOPHILS % (AUTO) 0.4 % (0-1); EOSINOPHILS # (AUTO) 0.1 X10'3 (0-0.9); EOSINOPHILS % (AUTO) 0.6 % (0-6); HEMATOCRIT 35.5 % (35.0-45.0); HEMOGLOBIN 12.4 g/dl (12.0-16.0); LYMPHOCYTES # (AUTO) 2.8 X10'3 (1.1-4.8); LYMPHOCYTES % (AUTO) 21.7 % (21-51); MEAN CORPUSCULAR HEMOGLOBIN 32.7 PG (27.0-31.0); MEAN CORPUSCULAR HGB CONC 34.9 g/dL (33.0-36.5); MEAN CORPUSCULAR VOLUME 93.6 FL (78-98); MEAN PLATELET VOLUME 9.1 FL (7.4-10.4); MONOCYTES # (AUTO) 0.7 X10'3 (0-0.9); MONOCYTES % (AUTO) 5.6 % (2-12); NEUTROPHILS # (AUTO) 9.2 X10'3 (1.8-7.7); NEUTROPHILS % (AUTO) 71.7 % (42-75); PLATELET COUNT 296 X10'3 (140-440); RED BLOOD COUNT 3.79 X10'6 (4.20-5.60); RED CELL DISTRIBUTION WIDTH 13.9 % (11.5-14.5); WHITE BLOOD COUNT 12.8 X10'3 (4.5-11.0)
[2024-11-13 22:40] LABS: ALANINE AMINOTRANSFERASE 49 U/L (12-78); ALBUMIN 3.1 G/DL (3.4-5.0); ALBUMIN/GLOBULIN RATIO 0.8 (1.1-1.5); ALKALINE PHOSPHATASE 61 IU/L (46-116); ANION GAP 9 (8-16); ASPARTATE AMINO TRANSFERASE 22 U/L (10-37); BILIRUBIN,TOTAL 0.4 MG/DL (0.1-1.0); BLOOD UREA NITROGEN 7 MG/DL (7-18); BUN/CREATININE RATIO 7.2 (10.0-20.0); CALCIUM 8.9 MG/DL (8.5-10.1); CHLORIDE 103 MMOL/L (99-107); CREATININE 0.97 MG/DL (0.40-0.90); GLUCOSE 89 MG/DL (70-104); POTASSIUM 3.3 MMOL/L (3.5-5.1); SODIUM 138 MMOL/L (135-145); TOTAL CARBON DIOXIDE 25.7 MMOL/L (24-32); eCRCL 73 ML/MIN; eGFR 64 ML/MIN
[2024-11-13 22:53] LABS: PRO BRAIN NATRIURETIC PEPTIDE 69 PG/ML (0-125)
[2024-11-14 01:04] VITALS: BP 96/73
[2024-11-14] MEDS ORDERED: AZIT250T PO (01:26)
[2024-11-14] MEDS ORDERED: CEPH-585 PO (01:26)
[2024-11-14] MEDS ORDERED: BENZ-38 PO (01:26)
[2024-11-14] MEDS ORDERED: PRED20TA PO (01:31)
[2024-11-14 01:36] VITALS: PULSE 100; RESP 18; O2SAT 98
[2024-11-14] MEDS: ipratropium/albuterol 3ml nebule NEB ONE (01:36)
[2024-11-14] MEDS: benzonatate 100mg capsule PO ONE (01:38)
[2024-11-14] MEDS: azithromycin 250mg tablet PO ONE (01:38)
[2024-11-14 01:42] VITALS: PULSE 92; RESP 18
[2024-11-14 02:02] VITALS: PULSE 89; RESP 15; TEMP 98.4; O2SAT 100
== END 2024-11-14 02:03 | disposition home or self-care (01) ==
LOC: ER 21:52
DX: J18.9 Pneumonia, unspecified organism (principal); F41.9 Anxiety disorder, unspecified; J45.909 Unspecified asthma, uncomplicated; Z87.442 Personal history of urinary calculi; Z88.0 Allergy status to penicillin; Z98.51 Tubal ligation status
CPT/HCPCS: 36415; 71045; 80053; 83880; 84484; 85025; 93005; 94640; 94760; 99285